=== PATIENT | female | born 2005 | race Asian ===

== ENCOUNTER 2023-11-16 06:15 | Day surgery (SDC) | payer MEDICAID ==
[2023-11-10 11:18] LABS: BASOPHILS # (AUTO) 0.1 X10'3 (0-0.2); BASOPHILS % (AUTO) 0.5 % (0-1); EOSINOPHILS # (AUTO) 0.1 X10'3 (0-0.9); EOSINOPHILS % (AUTO) 0.6 % (0-6); HEMATOCRIT 38.8 % (35.0-45.0); HEMOGLOBIN 12.7 g/dl (12.0-16.0); LYMPHOCYTES # (AUTO) 2.6 X10'3 (1.1-4.8); MEAN CORPUSCULAR HEMOGLOBIN 26.7 PG (27.0-31.0); MEAN CORPUSCULAR HGB CONC 32.8 g/dL (33.0-36.5); MEAN CORPUSCULAR VOLUME 81.5 FL (78-98); MEAN PLATELET VOLUME 8.7 FL (7.4-10.4); MONOCYTES # (AUTO) 0.7 X10'3 (0-0.9); MONOCYTES % (AUTO) 6.9 % (2-12); NEUTROPHILS # (AUTO) 6.5 X10'3 (1.8-7.7); PLATELET COUNT 368 X10'3 (140-440); RED BLOOD COUNT 4.76 X10'6 (4.20-5.60); RED CELL DISTRIBUTION WIDTH 14.1 % (11.5-14.5); WHITE BLOOD COUNT 9.9 X10'3 (4.5-11.0)
[2023-11-10 11:38] LABS: ALANINE AMINOTRANSFERASE 25 U/L (12-78); ALBUMIN 3.7 G/DL (3.4-5.0); ALBUMIN/GLOBULIN RATIO 0.8 (1.1-1.5); ALKALINE PHOSPHATASE 62 IU/L (20-180); ANION GAP 8 (8-16); ASPARTATE AMINO TRANSFERASE 13 U/L (10-37); BILIRUBIN,TOTAL 0.3 MG/DL (0.1-1.0); BLOOD UREA NITROGEN 19 MG/DL (7-18); BUN/CREATININE RATIO 21.1 (10.0-20.0); CALCIUM 8.8 MG/DL (8.5-10.1); CHLORIDE 105 MMOL/L (99-107); GLUCOSE 98 MG/DL (70-104); SODIUM 135 MMOL/L (135-145); TOTAL CARBON DIOXIDE 22.5 MMOL/L (24-32); TOTAL PROTEIN 8.1 G/DL (6.4-8.2); eGFR 80 ML/MIN
[2023-11-10 11:49] LABS: HCG SERUM QL NEGATIVE
[~2023-11-16] VITALS: Ht 154.9 cm; Wt 79.4 kg
[~2023-11-16 06:15] MED LIST: HYDR-3686 PO; IBUP-1985 PO
[2023-11-16] MEDS: cefazolin 2gm/D5W 100mL 100 ML IV ONE (06:57)
[2023-11-16] MEDS: famotidine 20mg tablet PO ONE (06:57)
[2023-11-16] MEDS: ringers solution, lacted 1,000 ML IV SCH (06:57)
[2023-11-16 07:57] LABS: HCG SERUM QL NEGATIVE
[2023-11-16] MEDS ORDERED: MIDAZolam 1 MG/ML 5ML VIAL ONE (08:04)
[2023-11-16] MEDS ORDERED: fentaNYL/PF 50MCG/1 ML 2ML syringe ONE (08:04)
[2023-11-16] MEDS: BUPIVAcaine/PF 2.5mg/ml (0.25%) 10ml vial IJ ONE (08:20)
[2023-11-16] MEDS ORDERED: propofol inj 20 ML IV ONE (08:24)
[2023-11-16 08:30] VITALS: BP 107/71; PULSE 73; RESP 14; O2SAT 98
[2023-11-16 08:40] VITALS: BP 113/73; PULSE 74; RESP 16; O2SAT 98
[2023-11-16 08:50] VITALS: BP 113/75; PULSE 77; RESP 18; O2SAT 98
[2023-11-16 09:00] VITALS: BP 115/79; PULSE 74; RESP 12; O2SAT 99
[2023-11-16] MEDS: ondansetron/PF 4mg/2ml inj IV ONE (09:00)
[2023-11-16] MEDS ORDERED: ondansetron/PF 4mg/2ml inj ONE (09:06)
[2023-11-16 09:10] VITALS: BP 130/77; PULSE 76; RESP 16; O2SAT 99
[2023-11-16 09:45] VITALS: BP 114/75; PULSE 83; RESP 16; TEMP 98; O2SAT 98
== END 2023-11-16 09:10 | disposition home or self-care (01) ==
LOC: PAS 06:15
PROVIDERS: ATTEND Orthopaedic Surgery Hand Surgery
DX: M67.431 Ganglion, right wrist (principal); E66.9 Obesity, unspecified; F41.9 Anxiety disorder, unspecified; G43.909 Migraine, unspecified, not intractable, without status migrainosus; Z79.1 Long term (current) use of non-steroidal anti-inflammatories (NSAID); Z79.891 Long term (current) use of opiate analgesic; Z79.899 Other long term (current) drug therapy; Z68.32 Body mass index [BMI] 32.0-32.9, adult
CPT/HCPCS: 25111; 36415; 80053; 82948; 84703; 85025; J0690; J2250; J2405; J2704; J3010; J3490; J7030; J7120; Z7506; Z7512; A4215; A4618; A6449; A7000